=== PATIENT | male | born 1960 | race Caucasian/White ===

== ENCOUNTER 2018-01-06 14:02 | Emergency (ER) | payer BC ==
[2018-01-06 15:36] VITALS: BP 136/96
--- NOTE | 2018-01-06 17:04 | UC ---
UC General HPI - HPI Summary HPI Summary: pt c/o head congestion, cough, chest congestion, chills and achy. began monday. - History of Current Complaint Chief Complaint: UCGeneralIllness Stated Complaint: COUGH,FEVER,HEADACHE Time Seen by Provider: 01/06/18 16:42 Hx Obtained From: Patient Onset/Duration: Sudden Onset, Still Present Pain Intensity: 6 Associated Signs & Symptoms: Positive: Cough, Fever, Headache. Negative: Chest Pain, Dysuria, Nausea, SOB, Vomiting, Wheezing - Allergy/Home Medications Allergies/Adverse Reactions: Allergies Allergy/AdvReac Type Severity Reaction Status Date / Time MS Penicillins [Penicillins] Allergy Swelling Verified 01/06/18 15:36 Home Medications: Home Medications Naproxen Sodium [Aleve] 220 mg PO DAILY 01/06/18 [History Confirmed 01/06/18] guaiFENesin ER TAB [Mucinex*] 600 mg PO BID 01/06/18 [History Confirmed 01/06/18 ] PMH/Surg Hx/FS Hx/Imm Hx Respiratory History: Pneumonia - Surgical History Surgical History: Yes Surgery Procedure, Year, and Place: LEFT WRIST SX. RIGHT RADIAL HEAD - Family History Known Family History: Positive: None Family History: negative for all listed - Social History Occupation: Employed Full-time Lives: With Family Alcohol Use: None Substance Use Type: None Smoking Status (MU): Former Smoker Type: Cigarettes Amount Used/How Often: 1 CIG DAILY Have You Smoked in the Last Year: Yes When Did the Patient Quit Smoking/Using Tobacco: 10 - Immunization History Vaccination Up to Date: Yes Review of Systems Constitutional: Fever, Chills ENT: Nasal Discharge Respiratory: Cough Musculoskeletal: Myalgia Is Patient Immunocompromised?: No All Other Systems Reviewed And Are Negative: Yes Physical Exam Triage Information Reviewed: Yes Appearance: Well-Appearing Vital Signs: Initial Vital Signs Temp 97.2 F 01/06/18 15:32 Pulse 68 01/06/18 15:32 Resp 18 01/06/18 15:32 BP 136/96 01/06/18 15:32 Pulse Ox 98 01/06/18 15:32 Vital Signs Reviewed: Yes Eyes: Positive: Conjunctiva Clear ENT: Positive: Pharynx normal, Nasal congestion, TMs normal. Negative: Nasal drainage, Sinus tenderness Neck: Positive: Supple, Nontender, No Lymphadenopathy Respiratory: Positive: Lungs clear, Normal breath sounds, No respiratory distress Cardiovascular: Positive: RRR, No Murmur Abdomen Description: Positive: Nontender, No Organomegaly, Soft Bowel Sounds: Positive: Present Musculoskeletal: Positive: No Edema Neurological Exam: Normal Psychological: Positive: Age Appropriate Behavior Skin Exam: Normal Diagnostics - Laboratory Diagnostic Studies Completed/Ordered: flu b+ Course/Dx - Course Course Of Treatment: flu b, will tx - Differential Dx - Multi-Symptom Provider Diagnoses: Influenza B Discharge - Discharge Plan Condition: Stable Disposition: HOME Prescriptions: Oseltamivir Phosphate [Tamiflu] 75 mg PO BID 5 Days #10 capsule Patient Education Materials: Influenza (ED) Forms: *Work Release Referrals: EVARISTO Palomino [Medical Doctor] - 5 Days
== END 2018-01-06 17:41 | disposition home or self-care (01) ==
LOC: UCCORT 14:02
DX: J10.1 Influenza due to other identified influenza virus with other respiratory manifestations (principal); Z87.891 Personal history of nicotine dependence
CPT/HCPCS: 87502; 99211; G0463

== ENCOUNTER 2018-11-22 17:00 | Emergency (ER) | payer BC ==
[2018-11-22 18:22] VITALS: BP 142/84
--- NOTE | 2018-11-22 19:43 | ED ---
Respiratory - HPI Summary HPI Summary: 58 yr old male with the complaint of cough, fever, chills, myalgias. Onset 2 days ago. He is coughing up yellow sputum. He has sinus pressure. He has had fever, chill symptoms. He denies vomiting, diarrhea. Denies CP, SOB. - History of Current Complaint Chief Complaint: UCRespiratory Stated Complaint: COUGH,CONGESTION Time Seen by Provider: 11/22/18 18:38 Pain Intensity: 0 - Allergy/Home Medications Allergies/Adverse Reactions: Allergies Allergy/AdvReac Type Severity Reaction Status Date / Time Penicillins Allergy Unknown Verified 11/22/18 18:18 Reaction Details PMH/Surg Hx/FS Hx/Imm Hx - Surgical History Surgery Procedure, Year, and Place: LEFT WRIST SX. RIGHT RADIAL HEAD Infectious Disease History: No Infectious Disease History: Denies: Traveled Outside the [place] in Last 30 Days - Family History Known Family History: Positive: None Family History: negative for all listed - Social History Occupation: Employed Full-time Alcohol Use: None Substance Use Type: Reports: None Smoking Status (MU): Former Smoker Type: Cigarettes Amount Used/How Often: 1 CIG DAILY Have You Smoked in the Last Year: Yes Review of Systems Positive: Fever, Chills Positive: Nasal Discharge Positive: Cough All Other Systems Reviewed And Are Negative: Yes Physical Exam Triage Information Reviewed: Yes Vital Signs On Initial Exam: Initial Vitals Temp Pulse Resp BP Pulse Ox 98.6 F 76 18 142/84 97 11/22/18 18:17 11/22/18 18:17 11/22/18 18:17 11/22/18 18:17 11/22/18 18:17 Vital Signs Reviewed: Yes Appearance: Positive: Well-Appearing, No Pain Distress Skin: Positive: Warm, Skin Color Reflects Adequate Perfusion Eyes: Positive: EOMI ENT: Positive: Pharyngeal erythema, Nasal congestion, Nasal drainage, TMs normal , Sinus tenderness Neck: Positive: Nontender Respiratory/Lung Sounds: Positive: Clear to Auscultation, Breath Sounds Present Cardiovascular: Positive: RRR. Negative: Murmur Abdomen Description: Negative: Distended Musculoskeletal: Positive: Strength/ROM Intact Neurological: Positive: Sensory/Motor Intact, Alert, Oriented to Person Place, Time, CN Intact II-III, Normal Gait, Speech Normal Psychiatric: Positive: Normal - Leidy Coma Scale Best Eye Response: 4 - Spontaneous Best Motor Response: 6 - Obeys Commands Best Verbal Response: 5 - Oriented Coma Scale Total: 15 Diagnostics - Vital Signs Vital Signs Temp Pulse Resp BP Pulse Ox 11/22/18 18:17 98.6 F 76 18 142/84 97 - Laboratory Lab Results: Lab Results 11/22/18 Range/Units 18:56 Influenza A (Rapid) Negative (Negative) Influenza B (Rapid) Negative (Negative) Lab Statement: Any lab studies that have been ordered have been reviewed, and results considered in the medical decision making process. Disposition - Course Course Of Treatment: 58 yr male with cough, sinus pressure. Neg rapid influenza. - Diagnoses Provider Diagnoses: Sinusitis, Hypertension Discharge - Sign-Out/Discharge Documenting (check all that apply): Patient Departure All imaging exams completed and their final reports reviewed: No Studies - Discharge Plan Condition: Good Disposition: HOME Prescriptions: Clarithromycin TAB* [Biaxin 500 MG TAB*] 500 mg PO BID #20 tab Patient Education Materials: Sinusitis (ED), Hypertension (ED) Referrals: No Primary Care Phys,NOPCP [Primary Care Provider] - [facility] [place] PHYSICIAN REFERRAL [Outside] - 1 Day - Billing Disposition and Condition Condition: GOOD Disposition: Home
== END 2018-11-22 19:54 | disposition home or self-care (01) ==
LOC: UCCORT 17:00
DX: J32.9 Chronic sinusitis, unspecified (principal); I10 Essential (primary) hypertension; Z88.0 Allergy status to penicillin; Z87.891 Personal history of nicotine dependence
CPT/HCPCS: 99212; G0463

== ENCOUNTER 2019-03-28 13:06 | Emergency (ER) | payer BC ==
[2019-03-28 13:22] VITALS: BP 141/85
--- NOTE | 2019-03-28 13:46 | UC ---
Respiratory Complaint HPI - HPI Summary HPI Summary: Pt presents with c/o fever, chills, productive cough with brown mucus, sob, malaise and fatigue X 3 days. - History of Current Complaint Chief Complaint: UCRespiratory Stated Complaint: UPPER RESPIRATORY Time Seen by Provider: 03/28/19 13:15 Hx Obtained From: Patient Onset/Duration: Gradual Onset, Lasting Days, Still Present, Worse Since - onset Timing: Constant Severity Initially: Mild Severity Currently: Moderate Pain Intensity: 7 Character: Cough: Productive, Sputum Description: - brown Aggravating Factors: Exertion, Deep Breaths, Recumbent Position Associated Signs And Symptoms: Positive: Fever, Chills, URI, Nasal Congestion - Risk Factors Pulmonary Embolism Risk Factors: Negative Cardiac Risk Factors: Negative Pseudomonas Risk Factors: Negative Tuberculosis Risk Factors: Negative - Allergies/Home Medications Allergies/Adverse Reactions: Allergies Allergy/AdvReac Type Severity Reaction Status Date / Time Penicillins Allergy Unknown Verified 03/28/19 13:22 Reaction Details Home Medications: Home Medications Acetaminophen 650 mg PO 03/28/19 [History] diphenhydrAMINE HCl [Benadryl Allergy 25 MG CAP] 25 mg PO 03/28/19 [History] PMH/Surg Hx/FS Hx/Imm Hx Previously Healthy: Yes - Surgical History Surgical History: Yes Surgery Procedure, Year, and Place: LEFT WRIST SX. RIGHT RADIAL HEAD - Family History Known Family History: Positive: Cardiac Disease - Social History Occupation: Employed Full-time Lives: With Family Alcohol Use: None Substance Use Type: None Smoking Status (MU): Current Some Day Smoker Type: Cigarettes Amount Used/How Often: 1 CIG DAILY Have You Smoked in the Last Year: Yes When Did the Patient Quit Smoking/Using Tobacco: 10 Household Exposure Type: Cigarettes - Immunization History Vaccination Up to Date: Yes Review of Systems All Other Systems Reviewed And Are Negative: Yes Constitutional: Positive: Fever, Chills, Fatigue Skin: Positive: Negative Eyes: Positive: Negative ENT: Positive: Sinus Congestion Respiratory: Positive: Shortness Of Breath, Cough Cardiovascular: Positive: Negative Gastrointestinal: Positive: Negative Genitourinary: Positive: Negative Motor: Positive: Negative Neurovascular: Positive: Negative Musculoskeletal: Positive: Myalgia Neurological: Positive: Weakness Psychological: Positive: Negative Is Patient Immunocompromised?: No Physical Exam Triage Information Reviewed: Yes Appearance: Ill-Appearing Vital Signs: Initial Vital Signs Temp 100.3 F 03/28/19 13:17 Pulse 67 03/28/19 13:17 Resp 18 03/28/19 13:17 BP 141/85 03/28/19 13:17 Pulse Ox 98 03/28/19 13:17 Vital Signs Reviewed: Yes Eye Exam: Normal ENT: Positive: Nasal congestion Dental Exam: Normal Neck exam: Normal Respiratory: Positive: Decreased breath sounds Cardiovascular Exam: Normal Musculoskeletal Exam: Normal Neurological Exam: Normal Psychological Exam: Normal Skin Exam: Normal Respiratory Course/Dx - Differential Dx/Diagnosis Differential Diagnosis/HQI/PQRI: Bronchitis, Exacerbation Of COPD Provider Diagnosis: Pneumonia Discharge - Sign-Out/Discharge Documenting (check all that apply): Patient Departure All imaging exams completed and their final reports reviewed: No Studies - Discharge Plan Condition: Stable Disposition: HOME Prescriptions: Albuterol HFA INHALER* [Ventolin HFA Inhaler*] 1 - 2 puff INH Q6H PRN #1 mdi PRN Reason: Sob/Wheezing Azithromycin TAB* [Zithromax TAB (Z-GRETA) 250 mg #6 tabs] 2 tab PO .TODAY, THEN 1 DAILY #1 greta Guaifenesin/Pseudoephedrne HCl [Mucinex D ER 600-60 mg Tablet] 1 each PO Q12H # 14 tab.er.12h predniSONE TAB* [Deltasone 10 MG TAB*] 40 mg PO DAILY #20 tab Patient Education Materials: Pneumonia (ED) Referrals: [facility] [place] PHYS[facility]IAN REFERRAL [Outside] - If Needed No Primary Care Phys,NOPCP [Primary Care Provider] - - Billing Disposition and Condition Condition: STABLE Disposition: Home
[2019-03-28 13:47] LABS: Influenza A Molecular NEGATIVE (Negative); Influenza B Molecular NEGATIVE (Negative)
== END 2019-03-28 13:57 | disposition home or self-care (01) ==
LOC: UCCORT 13:06
DX: J18.9 Pneumonia, unspecified organism (principal); F17.210 Nicotine dependence, cigarettes, uncomplicated; Z88.0 Allergy status to penicillin
CPT/HCPCS: 99212; G0463